=== PATIENT | female | born 1975 | race Asian ===

== ENCOUNTER 2017-02-04 15:24 | Emergency (ER) | payer OTHER ==
[2017-02-04 16:02] LABS: URINE BILIRUBIN NEGATIVE (NEGATIVE); URINE BLOOD 4+ (NEGATIVE); URINE GLUCOSE (UA) NEGATIVE (NEGATIVE); URINE LEUKOCYTE ESTERASE TRACE (NEGATIVE); URINE NITRITE NEGATIVE (NEGATIVE); URINE PROTEIN NEGATIVE (NEGATIVE); URINE UROBILINOGEN NORMAL (0-1 mg/dl)
[2017-02-04 16:04] LABS: URINE APPEARANCE CLEAR; URINE COLOR LIGHT YELLOW
[2017-02-04 16:05] LABS: HCG,QUALITATIVE URINE NEGATIVE
[2017-02-04 16:15] LABS: URINE BACTERIA 3+; URINE EPITHELIAL CELLS 15-20 /hpf
[2017-02-04] MEDS ORDERED: PROCHLORPERAZINE 5 MG/ML 2 ML VIAL ONE (17:09)
[2017-02-04] MEDS ORDERED: MORPHINE SULFATE 4 MG/ML SYRINGE ONE (17:09)
[2017-02-04] MEDS ORDERED: KETOROLAC TROMETHAMINE 15 MG/ML VIAL ONE (17:09)
[2017-02-04 17:20] LABS: ABSOLUTE NEUTROPHIL COUNT 8.7 K/mm3 (1.8-7.7); BASO # 0.1 K/mm3 (0.0-0.2); BASO % 0.6 % (0.2-1.0); EOS # 0.3 (0.0-0.5); EOS % 2.4 % (0.9-2.9); HEMATOCRIT 39.1 % (37.0-47.0); HEMOGLOBIN 12.8 gm/l (12.0-16.0); IMM NEUT% 0.3 % (0-1); LYMPH # 2.1 (1.0-4.8); LYMPH % 16.9 % (15-45); MEAN CELL VOLUME 88.9 fl (81.0-99.0); MEAN CORPUSCULAR HEMOGLOBIN 29.1 pg (27.0-31.0); MEAN CORPUSCULAR HGB CONC 32.7 g/dl (33.0-37.0); MEAN PLATELET VOLUME 10.8 fl (7.4-10.4); MONO # 1.1 (0.0-0.8); NEUT % 70.8 % (43-75); PLATELET COUNT 274 K/mm3 (130-400); RED CELL DISTRIBUTION WIDTH 12.7 % (11.5-14.5)
[2017-02-04 17:43] LABS: CALCIUM 8.6 mg/dL (8.6-10.3)
--- NOTE | 2017-02-04 18:09 | CT ---
ADDENDUM #1 Addendum: The second sentence of the second Should read "In the left ureteral pelvic junction, there is an 8 mm calculus" ORIGINAL REPORT Name: KELLY MOULTON Exam: Noncontrast renal stone CT Comparison: None Clinical History: Left flank pain Procedure: Helical CT using multidetector technique was applied to the abdomen and pelvis without contrast. Sagittal, axial and coronal reconstructions were obtained. An automated dose reduction technique was used to minimize patient radiation dose. Findings: CT abdomen (noncontrast): Lung bases are clear. Heart is nonenlarged. There is no pericardial effusion. Noncontrast images of the liver, pancreas, spleen, adrenal glands, aorta, IVC and portal vein are within normal limits. Stomach is nearly empty. Small bowel and colon are within normal limits. There is small fat filled umbilical hernia. Old limbus vertebral body is noted at the anterior superior margin of L4. Degenerative disc disease is present at L5-S1. Hemangiomas are identified at T9, T10 and T12. There is a small amount of fluid down the left paracolic gutter. There is no free air or abscess. In the mid aspect of the right kidney, there is a 7 mm nonobstructing calculus. In the right ureteral pelvic junction, there is an 8 mm calculus. Moderate hydronephrosis is present. There is fairly prominent left perinephric stranding with extension into the paracolic gutter. The ureters are normal caliber. CT pelvis (noncontrast): Bladder is normal. Uterus is midline. Left ovary is normal. Right ovary is enlarged by a 4 cm probable cyst. Follow-up ultrasound is recommended. Small bowel, appendix and colon are within normal limits. On the left, there is a heavily calcified 2 cm oval smooth structure which is likely a calcified lymph node given the patient's age. There is trace free fluid. There is free air or suspicious adenopathy. Impression: 1. 8 mm calculus in the left ureteropelvic junction causing moderate hydronephrosis and prominent perinephric stranding 2. 7 mm nonobstructing calculus right kidney 3. 4 cm presumed right ovary and cyst. Follow-up ultrasound is recommended. Note: The above report was uploaded to [facility]'s electronic medical records system at 1805 hours.
== END 2017-02-04 20:01 | disposition home or self-care (01) ==
LOC: ED 15:24
DX: N20.0 Calculus of kidney (principal); E11.9 Type 2 diabetes mellitus without complications; Z79.84 Long term (current) use of oral hypoglycemic drugs
CPT/HCPCS: 81025; 85025; 80048; 81001; 74176; 96375; 99283 ×2; 96374; J0780; J2270